=== PATIENT | female | born 1960 | race Hispanic/Latino ===

== ENCOUNTER 2024-10-28 08:08 | Inpatient (IN) | payer OTHER ==
[~2024-10-28] VITALS: Ht 144.8 cm; Wt 53.1 kg
[2024-10-28] MEDS: ondanSETRON 4MG INJ IVP ONE (08:29)
[2024-10-28] MEDS: LACTATED RINGERS 1000ML 1,000 ML IV ONE (08:29)
[2024-10-28 08:32] LABS: ABG OXYGEN SATURATION 76.7 % (94.0-98.0); BASE EXCESS,VENOUS BLOOD GAS -25.5 (-2.0-3.0); HCO3,VENOUS BLOOD GAS 4.6 (22.0-29.0); PCO2,VENOUS BLOOD GAS 20 (38-54); PH,VENOUS BLOOD GAS 6.986 (7.320-7.430); PO2,VENOUS BLOOD GAS 47.9 mmHg (23.0-48.0); VENT MODE, BG RA (ROOM AIR)
--- NOTE | 2024-10-28 08:37 | ERN ---
General Chief Complaint: Hyperglycemia Stated Complaint: HYPERGLYCERMIA Time Seen by MD: 08:16 History of Present Illness Initial Comments 63-year-old female, history of insulin-dependent diabetes, who presents for vomiting, generalized abdominal cramping, rapid respirations, and generalized weakness. Patient reports that she was taking 50 units of Lantus previously, recently her insulin has changed. Yesterday she took 4 units of Lantus in the morning and 3 units of Novolin twice. She woke up this morning feeling unwell. She denies any fevers, sore throat, chest pain, or any recent illness. According to family, she often does not take her insulin at home when she was feeling well. Allergies: Coded Allergies: acetaminophen (Unverified Allergy, Unknown, HIVES, 10/28/24) Past Medical History Past Medical History: Diabetes-Type II Past Surgical History: Other ROS Dictation CONSTITUTIONAL: Feeling unwell HEAD/FACE: No signs of trauma. EENT: No eye pain, no blurred vision, no tearing, no double vision, no ear pain, no ear discharge, no nose pain, no nasal congestion, no throat pain, no throat swelling, no mouth pain. RESPIRATORY: Tachypnea CARDIOVASCULAR: No chest pain, no edema, no palpitations, no syncope. GASTROINTESTINAL/ABDOMINAL: Vomiting. GENITOURINARY: No abnormal discharge, no dysuria, no frequent urination, no hematuria. No complaints of pain in the genitals. MUSCULOSKELETAL: No back pain, no gout, no joint pain, no joint swelling, no muscle pain, no muscle stiffness, no neck pain. INTEGUMENTARY: No change in color, no change in hair/nails, no dryness, no lesion, no lumps, no rash. NEUROLOGICAL/PSYCH: No anxiety, not depressed, no emotional problem, no headache, no numbness, no pre-existing deficit, no history of seizures, no tremors, no weakness. HEMATOLOGIC/LYMPHATIC: Not anemic, no history of blood clots, no apparent bleeding, no bruising, glands not swollen. All Systems Negative, Except as Noted. Physical Exam Physical Exam Dictation VITAL SIGNS: Reviewed. GENERAL APPEARANCE: Alert, oriented x3, moderate distress HEAD AND FACE: Non-traumatic. EYES: PERRL, pink conjunctivas, eyelid no trauma, anterior chamber clear. EARS: Pinnas intact and no signs of trauma or erythema. Ear canals clear and no discharge. TMs no erythema. NOSE: No discharge, no bleeding. OROPHARYNX: Mouth normal, teeth no caries, tongue pink. Pharynx clear, no erythema. Tonsils no exudates, no abscesses noted. Mucous membrane moist. NECK: Supple, non-tender, no thyromegaly, no masses, no JVD, no bruits. BREAST: Deferred. CHEST: No tenderness, no crepitus, no paradoxical movement, no retractions. LUNGS: Tachypnea with clear lung sounds HEART: Regular rate, regular rhythm, no murmur, no gallops. VASCULAR: No peripheral edema. ABDOMEN: Soft, positive bowel sounds, nondistended, no guarding, nontender, no rebound, no masses no hepatomegaly, no splenomegaly, no Castano's sign, no hernias. RECTAL: Deferred. GENITAL: Deferred. NEUROLOGICAL: Normal speech, gross motor function intact, gross sensory func tion intact. MUSCULOSKELETAL: Neck nontender, full range of motion, back nontender, full range of motion. EXTREMITIES: Nontender, full range of motion. SKIN: Color pink, dry, no turgor, no rash, no lacerations, no abrasions, no contusions. LYMPHATICS: Deferred. Results Laboratory and Microbiology Lab and Micro Result Laboratory Tests Test 10/28/24 08:13 10/28/24 08:31 10/28/24 08:32 Whole Blood Glucose > 600 MG/DL (70-110) *H Bedside Glucose Comment Notified Nurse Blood Gas Specimen Type Venous Arterial Blood Oxygen Saturation 76.7 % (94.0-98.0) L Venous Blood pH 6.986 (7.320-7.430) Venous Blood pCO2 at Patient Temp 20 (38-54) *L Venous Blood pO2 at Patient Temp 47.9 mmHg (23.0-48.0) Venous Blood HCO3 4.6 (22.0-29.0) L Venous Blood Base Excess -25.5 (-2.0-3.0) L Venous Blood Total Hemoglobin 15.5 (12.0-16.0) Sodium (Blood Gas) 131 MMOL/L (136-145) L Bedside Potassium (Blood Gas) 4.4 MMOL/L (3.4-4.5) Bedside Chloride (Blood Gas) 96 MMOL/L (98-107) L Bedside Glucose (Blood Gas) 617 MG/DL (65-95) *H Bedside Ionized Calcium (Blood Gas) 1.25 MMOL/L (1.15-1.33) Bedside Lactic Acid (Blood Gas) 5.15 MMOL/L (0.36-0.75) *H Blood Gas Temperature 37.0 CELSIUS (35.5-37.0) Blood Gas Vent Mode RA (ROOM AIR) FiO2 21.0 % Blood Gas Specimen Comment JAIME DR. BARBER White Blood Count 16.6 K/uL (4.8-10.8) H Red Blood Count 4.98 MIL/uL (4.00-5.50) Hemoglobin 14.5 g/dL (12.0-16.0) Hematocrit 45.6 % (36-48) Mean Corpuscular Volume 91.6 fL (79-99) Mean Corpuscular Hemoglobin 29.1 pg (27.0-33.0) Mean Corpuscular Hemoglobin Concent 31.8 g/dL (32.0-36.0) L Red Cell Distribution Width 13.4 % (11.0-15.5) Platelet Count 334 K/uL (130-400) Mean Platelet Volume 11.3 fL (7.5-10.5) H Immature Granulocyte % (Auto) 0.7 % (0-1) Neutrophils (%) (Auto) 90.6 % (40.0-77.0) H Lymphocytes (%) (Auto) 4.6 % (21.0-51.0) L Monocytes (%) (Auto) 4.0 % (3.0-13.0) Eosinophils (%) (Auto) 0.0 % (0.0-8.0) Basophils (%) (Auto) 0.1 % (0.0-5.0) Neutrophils # (Auto) 15.0 K/uL (1.8-7.7) H Lymphocytes # (Auto) 0.8 K/uL (1.0-4.8) L Monocytes # (Auto) 0.7 K/uL (0.1-1.0) Eosinophils # (Auto) 0.00 K/uL (0.00-0.70) Basophils # (Auto) 0.02 K/uL (0.00-0.20) Absolute Immature Granulocyte (auto 0.12 K/uL (0-1) Nucleated Red Blood Cells 0.0 % (0.0-0.19) White Cell Morphology Comment See comments Sodium Level 132 mmol/L (136-145) L Potassium Level 4.2 mmol/L (3.5-5.1) Chloride Level 89 mmol/L (101-111) *L Carbon Dioxide Level 5 mmol/L (21-32) *L Blood Urea Nitrogen 48 mg/dL (7-18) H Creatinine 2.1 mg/dL (0.5-1.0) H Glomerular Filtration Rate Calc 26 mL/min (>90) Random Glucose 633 mg/dL (70-105) *H Whole Blood Ketones Quantitative > 8.0 mmol/L (0.0-0.6) H Total Calcium 9.2 mg/dL (8.5-10.1) Troponin I High Sensitivity 7 ng/L (4-50) Lipase 62 U/L (16-77) MDM CC: GBW, nausea vomiting, rapid respiration historian: Patient Comorbidities: DM to Limitations by social determinants of health: None Differential diagnosis: DKA, dehydration, GI pathology, vomiting, other. Vital signs: BP stable, tachycardic 114, respiratory rate is 26, oxygen saturation stable. EKG: Sinus tachycardia rate of 109 normal axis good R-wave progression, intervals are stable no STEMI. Independently interpreted by me. VBG (independently ordered and interpreted by me): PH 6.98, bicarb 4.6 base excess -25. Hemo concentration hemoglobin 15.5 hematocrit 46. Potassium 4.39. Lactic 5.1, glucose 617. Treatment in ED: Started on DKA protocol. Fluids given. The potassium is stable 4.3. Insulin drip started. Consultations: [facility] for ICU care, Dr. Ozuna for admission (Dr. Chaves) ED Course Orders Procedure Category Date Status Time Cbc With Differential LAB 10/28/24 Complete 08:17 Urinalysis Profile LAB 10/28/24 Complete 08:17 Lactated Ringers PHA 10/28/24 Complete 1000ml (Lactated 08:30 Lipase LAB 10/28/24 Complete 08:17 Basic Metabolic Panel LAB 10/28/24 Complete 08:17 Venous Blood Gas + RT 10/28/24 Transmitted 08:17 Ketone Blood LAB 10/28/24 Complete Quantitative 08:17 Troponin I High LAB 10/28/24 Complete Sensitivity 08:17 Ondansetron 4mg Inj PHA 10/28/24 Complete (Zofran 4mg Inj) 08:30 12 Lead Ekg Tracing- EKG 10/28/24 Complete Technical 08:17 Venous Blood Gas Plus LAB 10/28/24 Complete 08:31 Dka Prtcl:Restrict To CPOE 10/28/24 Transmitted Icu/Ccu 08:33 Dka Protcl:Dc All CPOE 10/28/24 Transmitted Meds/Feeding 08:33 Dka Protocol: Bmp Q4h CPOE 10/28/24 Transmitted Until 08:33 Basic Metabolic Panel LAB 10/28/24 Complete 12:33 Basic Metabolic Panel LAB 10/28/24 Complete 16:33 Basic Metabolic Panel LAB 10/28/24 Logged 20:33 Basic Metabolic Panel LAB 10/29/24 Verified 00:33 Basic Metabolic Panel LAB 10/29/24 Verified 04:33 Basic Metabolic Panel LAB 10/29/24 Verified 08:33 Basic Metabolic Panel LAB 10/29/24 Verified 12:33 Basic Metabolic Panel LAB 10/29/24 Verified 16:33 Basic Metabolic Panel LAB 10/29/24 Verified 20:33 Basic Metabolic Panel LAB 10/30/24 Verified 00:33 Basic Metabolic Panel LAB 10/30/24 Verified 04:33 Basic Metabolic Panel LAB 10/30/24 Verified 08:33 Basic Metabolic Panel LAB 10/30/24 Verified 12:33 Basic Metabolic Panel LAB 10/30/24 Verified 16:33 Basic Metabolic Panel LAB 10/30/24 Verified 20:33 0.9%Nacl 1000ml (Ns PHA 10/28/24 In Process 1000ml) 09:00 D5w-1/2 Ns/20meq Kcl PHA 10/28/24 In Process (D5w-1/2 Ns/20meq K 09:00 Potassium Chloride PHA 10/28/24 In Process 20meq/10ml (Kcl 20meq 09:00 Magnesium 2gm Premix PHA 10/28/24 In Process 50ml (Magnesium 2gm 09:00 Insulin Regular, PHA 10/28/24 Logged Human 3ml (Humulin R 09:00 Dka Protocol: Bs, Vs, CPOE 10/28/24 Transmitted Neuro 08:33 Dextrose 5 %-0.45 % PHA 10/28/24 In Process Nacl (D5 1/2ns) 09:00 Current Medications Medications (Trade) Dose Ordered Sig/Terence Route PRN Reason Start Time Stop Time Status Last Admin Dose Admin Lactated Ringer's 1,000 ml @ 0 mls/hr ONCE ONCE IV 10/28/24 08:30 10/28/24 08:32 DC 10/28/24 08:29 Ondansetron HCl (zoFRAN 4MG INJ) 4 mg ONCE ONCE IVP 10/28/24 08:30 10/28/24 08:32 DC 10/28/24 08:29 Vital Signs Date Time Temp Pulse Resp B/P (MAP) Pulse Ox O2 Delivery O2 Flow Rate FiO2 10/28/24 08:34 97.0 107 26 117/72 98 Room Air* 0 21 10/28/24 08:13 96.4 114 20 112/64 99 Room Air DX & DISP Disposition: Inpatient (ICU) Departure Impression: Primary Impression: DKA (diabetic ketoacidosis) Critical Time: 30 minutes (Critical Care Procedure NoteAuthorized and Performed by: meTotal critical care time: Approximately 36 minutesDue to a high probability of clinically significant, life threatening deterioration, the patient required my highest level of preparedness to intervene emergently and I personally spent this critical care time directly and personally managing the patient. This critical care time included obtaining a history; examining the patient; pulse oximetry; ordering and review of studies; arranging urgent treatment with development of a management plan; evaluation of patient's response to treatment; frequent reassessment; and, discussions with other providers.This critical care time was performed to assess and manage the high probability of imminent, life-threatening deterioration that could result in multi-organ failure. It was exclusive of separately billable procedures and treating other patients and teaching time.Please see MDM section and the rest of the note for further information on patient assessment and treatment.) Condition: Stable Referrals: SELF,REFERRAL (PCP) NISHA BARBER DO Oct 28, 2024 08:37
[2024-10-28 08:55] LABS: BASOPHILS # (AUTO) 0.02 K/uL (0.00-0.20); BASOPHILS % (AUTO) 0.1 % (0.0-5.0); HEMATOCRIT 45.6 % (36-48); IMMATURE GRANULOCYTE ABSOLUTE 0.12 K/uL (0-1); LYMPHOCYTES # (AUTO) 0.8 K/uL (1.0-4.8); LYMPHOCYTES % (AUTO) 4.6 % (21.0-51.0); MEAN CORPUSCULAR HEMOGLOBIN 29.1 pg (27.0-33.0); MEAN CORPUSCULAR HGB CONC 31.8 g/dL (32.0-36.0); MEAN CORPUSCULAR VOLUME 91.6 fL (79-99); MONOCYTES # (AUTO) 0.7 K/uL (0.1-1.0); NEUTROPHILS % (AUTO) 90.6 % (40.0-77.0); PLATELET COUNT (AUTO) 334 K/uL (130-400); RED BLOOD CELL COUNT(AUTO) 4.98 MIL/uL (4.00-5.50); RED CELL DISTRIBUTION WIDTH 13.4 % (11.0-15.5); WHITE BLOOD COUNT (AUTO) 16.6 K/uL (4.8-10.8)
--- NOTE | 2024-10-28 08:55 | EKG ---
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
[2024-10-28] MEDS ORDERED: MAGNESIUM 2GM PREMIX 50ML 50 ML IV SCH ×2 (09:00→23:00)
[2024-10-28] MEDS ORDERED: DEXTROSE 5 %-0.45 % NACL 1,000 ML IV SCH (09:00)
[2024-10-28] MEDS ORDERED: 0.9%NACL 1000ML 1,000 ML IV SCH (09:00)
[2024-10-28] MEDS ORDERED: PoTASSium chloRIDE 20MEQ/10ML 20 MEQ in 0.9%NACL 1000ML 1,000 ML IV SCH (09:00)
[2024-10-28 09:09] LABS: CREATININE 2.1 mg/dL (0.5-1.0); GLOMERULAR FILTR. RATE CALC 26 mL/min (>90); POTASSIUM 4.2 mmol/L (3.5-5.1); SODIUM SERUM 132 mmol/L (136-145); UREA NITROGEN, BLOOD 48 mg/dL (7-18)
[2024-10-28 09:12] LABS: CARBON DIOXIDE 5 mmol/L (21-32); CHLORIDE 89 mmol/L (101-111); GLUCOSE,RANDOM 633 mg/dL (70-105)
[2024-10-28] MEDS: INSULIN REGULAR, HUMAN 3ML 100 UNIT in 0.9%NACL 100ML 100 ML IV SCH (09:58)
[2024-10-28 11:44] LABS: APPEARANCE,URINE CLEAR (CLEAR); BILIRUBIN,URINE NEGATIVE (NEGATIVE); COLOR,URINE COLORLESS (YELLOW); GLUCOSE, URINE (UA) >=1000 mg/dL (NEGATIVE); KETONES,URINE 150 mg/dL (NEGATIVE); LEUKOCYTE ESTERASE ,URINE NEGATIVE Leu/uL (NEGATIVE); NITRATE,URINE NEGATIVE (NEGATIVE); OCCULT BLOOD,URINE NEGATIVE (NEGATIVE); PROTEIN,URINE 10 mg/dL (NEGATIVE); UROBILINOGEN,URINE 0.2 mg/dL (0.2-1.0)
[2024-10-28 12:31] LABS: ADD UA MICROSCOPIC YES
--- NOTE | 2024-10-28 13:01 | CONS ---
[facility] CONSULTATION NOTE Date Patient Seen: Oct 28, 2024 Time of Visit: 13:01 Supervising Physician: Homer Trejo MD Reason for Consultation: Critical Care Management Primary Care Physician: Oj Chaves Outpatient Specialists: [ ] Inpatient Consults: Dr Maya LUCAS PROBLEM LIST: Multifactorial metabolic acidosis (DKA, lactic acidosis, ADA) DKA ADA Leukocytosis Uncontrolled blood sugars and type 2 diabetes mellitus, POA Dehydration Ketonuria Protein urea Glucosuria HPI: This is a 63-year-old female with a past medical history of insulin-dependent type 2 diabetes mellitus who came into the emergency department for evaluation of elevated blood sugars. Patient reports a recent insulin change but does not recall exactly the name of the medication. Patient reports that since rub change in medication she has been able to control her blood sugars. She also reported some abdominal pain nausea and generalized body weakness. She denies any fever, chills, cough or shortness of breath at this time. She was seen in the emergency department evaluated and found to have DKA with a anion gap of 38. With a sodium of 132 chloride of 89 carbon dioxide in the serum of five BUN of 48 creatinine of 2.1 initial glucose was greater than 600 mg/dL ketones was greater than eight. Lipase was normal sensitive troponin was normal total calcium was 9.2. Venous blood gas with a pH of 6.98, pCO2 of 20 PO2 of 47.9 and bicarb of 4.6 with a base excess -25.5 lactic acid was 5.15. On chemistry white count was 16.6 platelet count 234 K neutrophils 90.6 Urine drug screen was negative. On urinalysis patient has a protein of 10 glucose of greater than 1000 ketones 750 RBCs 2-5 WBCs at 02:25 2- for leukocyte esterase. Renal ultrasound showed normal renal bladder sonogram. Patient was admitted by to the ICU and we are consulted for critical care management. On assessment patient is awake alert and oriented x3. Hemodynamically stable and afebrile. Saturating well and ambulatory. Inform her of plan of care and answered all her questions. She is in no apparent distress we will start the DKA protocol and follow her through the ICU stay. PAST MEDICAL HX: see above PAST SURGICAL HX: noncontributory SOCIAL HISTORY: No tobacco, ETOH, or illicit drug use Coded Allergies: acetaminophen (Unverified Allergy, Unknown, HIVES, 10/28/24) REVIEW OF SYSTEMS: General: Generalized body weakness. Neurological: No fainting episodes or seizures. HEENT: No nasal congestion or nasal secretion. Respiratory: No cough, shortness of breath, or wheezing Cardiac: No chest pain or palpitations. Gastrointestinal: Yes to nausea vomiting and abdominal pain resolving. Genitourinary: No dysuria hematuria. Skin: No rashes or lesions. Hematological: No bruises or bleeding. Musculoskeletal: No joint pains or arthralgias. Psychiatric: No depression or panic attacks. PHYSICAL EXAM: GENERAL: alert, weak, awake oriented x 3 HEENT: EOMI, Sclera non icteric, moist mucosa NECK: Supple, no JVD, trachea midline LUNGS: Clear breath sounds bilaterally. No wheezes HEART: Regular rate and rhythm. Normal S1 and S2, without murmurs ABD: Abdomen soft, nontender. Bowel sounds present EXT: No clubbing cyanosis or edema NEURO: Alert and oriented to person, follows commands Vital Signs (last 8hr) Date Time Temp Pulse Resp B/P (MAP) Pulse Ox O2 Delivery O2 Flow Rate FiO2 10/28/24 08:34 97.0 107 26 117/72 98 Room Air* 0 21 10/28/24 08:13 96.4 114 20 112/64 99 Room Air LABS: Hematology Labs: Test 10/28/24 08:32 Range/Units White Blood Count 16.6 H 4.8-10.8 K/uL Red Blood Count 4.98 4.00-5.50 MIL/uL Hemoglobin 14.5 12.0-16.0 g/dL Hematocrit 45.6 36-48 % Mean Corpuscular Volume 91.6 79-99 fL Mean Corpuscular Hemoglobin 29.1 27.0-33.0 pg Mean Corpuscular Hemoglobin Concent 31.8 L 32.0-36.0 g/dL Red Cell Distribution Width 13.4 11.0-15.5 % Platelet Count 334 130-400 K/uL Mean Platelet Volume 11.3 H 7.5-10.5 fL Immature Granulocyte % (Auto) 0.7 0-1 % Neutrophils (%) (Auto) 90.6 H 40.0-77.0 % Lymphocytes (%) (Auto) 4.6 L 21.0-51.0 % Monocytes (%) (Auto) 4.0 3.0-13.0 % Eosinophils (%) (Auto) 0.0 0.0-8.0 % Basophils (%) (Auto) 0.1 0.0-5.0 % Neutrophils # (Auto) 15.0 H 1.8-7.7 K/uL Lymphocytes # (Auto) 0.8 L 1.0-4.8 K/uL Monocytes # (Auto) 0.7 0.1-1.0 K/uL Eosinophils # (Auto) 0.00 0.00-0.70 K/uL Basophils # (Auto) 0.02 0.00-0.20 K/uL Absolute Immature Granulocyte (auto 0.12 0-1 K/uL Nucleated Red Blood Cells 0.0 0.0-0.19 % White Cell Morphology Comment See comments Chemistry Labs: Test 10/28/24 12:20 10/28/24 10:59 10/28/24 08:32 Range/Units Whole Blood Glucose 391 H 70-110 MG/DL Bedside Glucose Comment Notified Nurse Sodium Level 132 L 136-145 mmol/L Potassium Level 4.2 3.5-5.1 mmol/L Chloride Level 89 *L 101-111 mmol/L Carbon Dioxide Level 5 *L 21-32 mmol/L Blood Urea Nitrogen 48 H 7-18 mg/dL Creatinine 2.1 H 0.5-1.0 mg/dL Glomerular Filtration Rate Calc 26 >90 mL/min Random Glucose 633 *H 70-105 mg/dL Whole Blood Ketones Quantitative > 8.0 H 0.0-0.6 mmol/L Total Calcium 9.2 8.5-10.1 mg/dL Troponin I High Sensitivity 7 4-50 ng/L Lipase 62 16-77 U/L DIAGNOSTICS / RADIOLOGY RESULTS: [ ] Signed PATIENT: RAVEN BRAR MR#: [id number] : 1960 SEX: F AGE: 63 LOCATION: [facility] ORDER [id number] STATUS: ADM IN REPORT#: [id number] SERVICE [id number] REASON: ada ORDERING PHYSICIAN: ROXANNA MUNIZ PROCEDURE: RENAL - US RENAL SONOGRAM US RENAL SONOGRAM REASON: ada COMPARISON: None TECHNIQUE: Renal and bladder sonogram was performed. FINDINGS: Right kidney is 10 x 3.8 x 4.4 cm, left 9.3 x 5.1 x 5.8 cm. There is no mass or stone. There is no hydronephrosis. Urinary bladder appears unremarkable. IMPRESSION: 1. Normal renal and bladder sonogram. DICTATED BY: VAUGHN ONTIVEROS MD DATE: 10/28/241419 ELECTRONICALLY SIGNED BY: VAUGHN ONTIVEROS MD DATE: 10/28/241422 PLAN Admitted to ICU per Dr Ozuna Four amps of sodium bicarb due to pH of 6.9 DKA protocol BMP q.4 hours per protocol Magnesium, potassium levels covered per protocol Q.1 hour or fingersticks Venous blood gas in the morning Monitor serum sodium which tend to rise as hypoglycemia is corrected failure to observe may indicate the patient has been over-hydrated with free water Strict I&O Assess mental status Administered subcu basal insulin consider bicarb if patient's pH is less than 6.9 bicarb less than 5., cardiac or respiratory dysfunction, severely hyperkalemia, Rechecked ketones in the morning. Empiric broad-spectrum antibiotic Monitor for rebound DKA Give LR 30 mL/kilogram bolus x1 NEURO: Minimize central acting medications as possible. Fall Precautions. Well lighted room through the day and minimize interruptions through the night to prevent acute delirium. PULMONARY: Supplemental 02 as needed Titrate Fio2 to keep Spo2 > or = 90% DuoNebs and CPT as needed IS hourly while awake for pulmonary hygiene Out of bed to chair as tolerated VAP Bundle CARDIOVASCULAR: Follow hemodynamics. Titrate vasopressor to keep MAP >65 or systolic blood pressure >95mmHg Drips: DKA insulin drip per protocol LINES: PIV GI & NUTRITION: Continue nutritional support Aspirations precautions Prokinetic agents and laxatives as needed NPO KIDNEYS & ELECTROLYTES: Strict monitoring of intake and output Daily weights Avoid nephrotoxic agents Monitor electrolytes and replace as needed Goal urine output of 30mL/hr or 0.5mL/kg/hr ENDOCRINE: Maintain blood glucose between 100-180 at all times. Insulin sliding scale for blood glucose management INFECTIOUS DISEASE: Trend temperature. Day-culture if febrile. Micro: [ ] Blood culture Urine culture Antibiotics: Rocephin 2 g Q 24 hours hours IV HEMATOLOGY & COAGULATION: Monitor H&H. Keep Hgb > 7 Transfuse 1 unit of PRBC for Hgb < 7 Transfuse 1 pack of platelets of platelets < 20, 000 Watch for any signs and symptoms of bleeding SKIN: Pressure ulcer prevention per facility protocol Rehab: PT/OT Prophylaxis: GI: Pepcid DVT: Lovenox Code Status: Full Resuscitation Disposition: ICU Other: Total patient care time exceeds 35 minutes excluding all procedures. Case was discussed and seen with my supervising physician. The above plan was formulated and agreed upon. ROXANNA MUNIZ Oct 28, 2024 13:01
[2024-10-28 13:13] LABS: CREATININE 1.7 mg/dL (0.5-1.0); POTASSIUM 3.8 mmol/L (3.5-5.1)
[2024-10-28 13:39] LABS: BACTERIA,URINE Few /HPF (None Seen)
[2024-10-28] MEDS: CEFTRIAXONE 2GM VIAL IVPB SCH (13:50)
[2024-10-28] MEDS: LACTATED RINGERS IV ONE (13:53)
[2024-10-28] MEDS: SODIUM BICARB 50MEQ 50ML VIAL IV ONE (13:53)
--- NOTE | 2024-10-28 14:22 | HP ---
HISTORY AND PHYSICAL NOTE DATE OF CONSULTATION: 10/28/24 REASON FOR CONSULTATION: Weakness HISTORY OF PRESENT ILLNESS: 63-year-old female, history of insulin-dependent diabetes, who presents for vomiting, generalized abdominal cramping, rapid respirations, and generalized weakness. Patient reports that she was taking 50 units of Lantus previously, recently her insulin has changed. Yesterday she took 4 units of Lantus in the morning and 3 units of Novolin twice. She woke up this morning feeling unwell. She denies any fevers, sore throat, chest pain, or any recent illness. According to family, she often does not take her insulin at home when she was feeling well. Allergies: Coded Allergies: acetaminophen (Unverified Allergy, Unknown, HIVES, 10/28/24) Past History Past Medical History Past Medical History: Diabetes-Type II Past Surgical History: Other Review of Systems ROS Dictation CONSTITUTIONAL: Feeling unwell HEAD/FACE: No signs of trauma. EENT: No eye pain, no blurred vision, no tearing, no double vision, no ear pain, no ear discharge, no nose pain, no nasal congestion, no throat pain, no throat swelling, no mouth pain. RESPIRATORY: Tachypnea CARDIOVASCULAR: No chest pain, no edema, no palpitations, no syncope. GASTROINTESTINAL/ABDOMINAL: Vomiting. GENITOURINARY: No abnormal discharge, no dysuria, no frequent urination, no hematuria. No complaints of pain in the genitals. MUSCULOSKELETAL: No back pain, no gout, no joint pain, no joint swelling, no muscle pain, no muscle stiffness, no neck pain. INTEGUMENTARY: No change in color, no change in hair/nails, no dryness, no lesion, no lumps, no rash. NEUROLOGICAL/PSYCH: No anxiety, not depressed, no emotional problem, no headache, no numbness, no pre-existing deficit, no history of seizures, no tremors, no weakness. HEMATOLOGIC/LYMPHATIC: Not anemic, no history of blood clots, no apparent bleeding, no bruising, glands not swollen. All Systems Negative, Except as Noted. ALLERGIES: Coded Allergies: acetaminophen (Unverified Allergy, Unknown, HIVES, 10/28/24) INPATIENT MEDS: Current Medications Medications Dose Ordered Sig/Terence Start Time Stop Time Status Last Admin Sodium Chloride 1,000 ml @ 200 mls/hr PROTOCOL 10/28/24 09:00 11/27/24 08:59 Potassium Chloride/Dextrose/ Sod Cl 1,000 ml @ 0 mls/hr AD 10/28/24 09:00 11/27/24 08:59 Potassium Chloride 20 meq/ Sodium Chloride 1,010 ml @ 0 mls/hr PROTOCOL 10/28/24 09:00 11/27/24 08:59 Magnesium Sulfate 50 ml @ 0 mls/hr PROTOCOL 10/28/24 09:00 11/27/24 08:59 Insulin Human Regular 100 unit/ Sodium Chloride 101 ml @ 0 mls/hr PROTOCOL 10/28/24 09:00 11/27/24 08:59 10/28/24 09:58 Dextrose/Sodium Chloride 1,000 ml @ 0 mls/hr AD 10/28/24 09:00 11/27/24 08:59 Insulin Glargine 10 units BID@0730,2100 10/28/24 21:00 11/27/24 20:59 Lactated Ringer's 1,593 ml @ 531 mls/hr ONCE ONCE 10/28/24 13:00 10/28/24 15:59 10/28/24 13:53 Ceftriaxone Sodium 2 gm Q24H 10/28/24 13:00 11/07/24 12:59 10/28/24 13:50 VITAL SIGNS Vital Signs Date Time Temp Pulse Resp B/P (MAP) Pulse Ox O2 Delivery O2 Flow Rate FiO2 10/28/24 13:06 98.2 94 16 114/64 98 Room Air* 0 21 10/28/24 08:34 97.0 107 26 117/72 98 Room Air* 0 10/28/24 08:13 96.4 114 20 112/64 99 Room Air PHYSICAL EXAM Physical Exam Physical Exam Physical Exam Dictation VITAL SIGNS: Reviewed. GENERAL APPEARANCE: Alert, oriented x3, moderate distress HEAD AND FACE: Non-traumatic. EYES: PERRL, pink conjunctivas, eyelid no trauma, anterior chamber clear. EARS: Pinnas intact and no signs of trauma or erythema. Ear canals clear and no discharge. TMs no erythema. NOSE: No discharge, no bleeding. OROPHARYNX: Mouth normal, teeth no caries, tongue pink. Pharynx clear, no erythema. Tonsils no exudates, no abscesses noted. Mucous membrane moist. NECK: Supple, non-tender, no thyromegaly, no masses, no JVD, no bruits. BREAST: Deferred. CHEST: No tenderness, no crepitus, no paradoxical movement, no retractions. LUNGS: Tachypnea with clear lung sounds HEART: Regular rate, regular rhythm, no murmur, no gallops. VASCULAR: No peripheral edema. ABDOMEN: Soft, positive bowel sounds, nondistended, no guarding, nontender, no rebound, no masses no hepatomegaly, no splenomegaly, no Castano's sign, no hernias. RECTAL: Deferred. GENITAL: Deferred. NEUROLOGICAL: Normal speech, gross motor function intact, gross sensory function intact. MUSCULOSKELETAL: Neck nontender, full range of motion, back nontender, full range of motion. EXTREMITIES: Nontender, full range of motion. SKIN: Color pink, dry, no turgor, no rash, no lacerations, no abrasions, no contusions. LYMPHATICS: Deferred. LABORATORY RESULTS Laboratory Tests 10/28/24 08:13: Whole Blood Glucose > 600, Bedside Glucose Comment Notified Nurse 10/28/24 08:31: Blood Gas Specimen Type Venous, Arterial Blood Oxygen Saturation 76.7, Venous Blood pH 6.986, Venous Blood pCO2 at Patient Temp 20, Venous Blood pO2 at Patient Temp 47.9, Venous Blood HCO3 4.6, Venous Blood Base Excess -25.5, Venous Blood Total Hemoglobin 15.5, Sodium (Blood Gas) 131, Bedside Potassium (Blood Gas) 4.4, Bedside Chloride (Blood Gas) 96, Bedside Glucose (Blood Gas) 617, Bedside Ionized Calcium (Blood Gas) 1.25, Bedside Lactic Acid (Blood Gas) 5.15, Blood Gas Temperature 37.0, Blood Gas Vent Mode RA, FiO2 21.0, Blood Gas Specimen Comment JAIME DR. BARBER 10/28/24 08:32: White Blood Count 16.6, Red Blood Count 4.98, Hemoglobin 14.5, Hematocrit 45.6, Mean Corpuscular Volume 91.6, Mean Corpuscular Hemoglobin 29.1, Mean Corpuscular Hemoglobin Concent 31.8, Red Cell Distribution Width 13.4, Platelet Count 334, Mean Platelet Volume 11.3, Immature Granulocyte % (Auto) 0.7, Neutrophils (%) (Auto) 90.6, Lymphocytes (%) (Auto) 4.6, Monocytes (%) (Auto) 4.0, Eosinophils (%) (Auto) 0.0, Basophils (%) (Auto) 0.1, Neutrophils # (Auto) 15.0, Lymphocytes # (Auto) 0.8, Monocytes # (Auto) 0.7, Eosinophils # (Auto) 0.00, Basophils # (Auto) 0.02, Absolute Immature Granulocyte (auto 0.12, Nucleated Red Blood Cells 0.0, White Cell Morphology Comment See comments, Sodium Level 132, Potassium Level 4.2, Chloride Level 89, Carbon Dioxide Level 5, Blood Urea Nitrogen 48, Creatinine 2.1, Glomerular Filtration Rate Calc 26, Random Glucose 633, Whole Blood Ketones Quantitative > 8.0, Total Calcium 9.2, Troponin I High Sensitivity 7, Lipase 62 10/28/24 10:59: Whole Blood Glucose 504, Bedside Glucose Comment Notified Nurse 10/28/24 11:16: Urine Color COLORLESS, Urine Appearance CLEAR, Urine pH 5.0, Urine Specific [place] 1.021, Urine Protein 10, Urine Glucose (UA) >=1000, Urine Ketones 150, Urine Occult Blood NEGATIVE, Urine Nitrate NEGATIVE, Urine Bilirubin NEGATIVE, Urine Urobilinogen 0.2, Urine Leukocyte Esterase NEGATIVE, Urine RBC 2-5, Urine WBC 2-5, Urine Squamous Epithelial Cells 2-5, Urine Bacteria Few 10/28/24 12:20: Whole Blood Glucose 391 10/28/24 12:26: Sodium Level 136, Potassium Level 3.8, Chloride Level 95, Carbon Dioxide Level 8, Blood Urea Nitrogen 47, Creatinine 1.7, Glomerular Filtration Rate Calc 33, Random Glucose 419, Total Calcium 9.0 10/28/24 13:15: Whole Blood Glucose 311 PROBLEM LIST: (1) DKA (diabetic ketoacidosis) ICD Codes: E11.10 - Type 2 diabetes mellitus with ketoacidosis without coma PLAN Admit to ICU and follow up per critical Care CADEN WASHINGTON MD Oct 28, 2024 14:22
--- NOTE | 2024-10-28 14:23 | HMCIMG ---
US RENAL SONOGRAM REASON: rekha COMPARISON: None TECHNIQUE: Renal and bladder sonogram was performed. FINDINGS: Right kidney is 10 x 3.8 x 4.4 cm, left 9.3 x 5.1 x 5.8 cm. There is no mass or stone. There is no hydronephrosis. Urinary bladder appears unremarkable. IMPRESSION: 1. Normal renal and bladder sonogram.
[2024-10-28 15:47] LABS: AMPHET/METH SCREEN,URINE NEGATIVE (NEGATIVE); BARBITURATE SCREEN, URINE NEGATIVE (NEGATIVE); BENZODIAZEPINES SCREEN,URINE NEGATIVE (NEGATIVE); CANNABINOID SCREEN,URINE NEGATIVE (NEGATIVE); COCAINE SCREEN,URINE NEGATIVE (NEGATIVE); OPIATE SCREEN,URINE NEGATIVE (NEGATIVE); PHENCYCLIDINE SCREEN,URINE NEGATIVE (NEGATIVE)
--- NOTE | 2024-10-28 16:49 | NUR ---
INSULIN TITRATION PLEASE SEE CHART FOR CHANGES
[2024-10-28 18:09] LABS: CREATININE 1.3 mg/dL (0.5-1.0); POTASSIUM 3.3 mmol/L (3.5-5.1)
[2024-10-28 21:29] LABS: CREATININE 1.3 mg/dL (0.5-1.0); POTASSIUM 3.1 mmol/L (3.5-5.1)
[2024-10-28] MEDS: INSULIN GLARgine 100 UNITS/ML 10 ML VIAL SQ SCH (23:13)
[2024-10-28] MEDS: PoTASSium chloRIDE 10MEQ/100ML 100 ML IV ONE (23:36)
[2024-10-29 01:45] LABS: HEMATOCRIT 33.4 % (36-48); MEAN CORPUSCULAR HEMOGLOBIN 28.8 pg (27.0-33.0); MEAN CORPUSCULAR HGB CONC 34.4 g/dL (32.0-36.0); MEAN CORPUSCULAR VOLUME 83.5 fL (79-99); RED CELL DISTRIBUTION WIDTH 13.2 % (11.0-15.5); WHITE BLOOD COUNT (AUTO) 8.7 K/uL (4.8-10.8)
[2024-10-29 01:52] LABS: CREATININE 1.2 mg/dL (0.5-1.0); POTASSIUM 3.3 mmol/L (3.5-5.1)
[2024-10-29] MEDS: PoTASSium chloRIDE 20MEQ/100ML 100 ML IV ONE (02:05)
[2024-10-29] MEDS: D5W-1/2 NS/20MEQ KCL 1,000 ML IV SCH (02:08)
[2024-10-29 03:48] LABS: ABG OXYGEN SATURATION 81.5 % (94.0-98.0); BASE EXCESS,VENOUS BLOOD GAS -3.3 (-2.0-3.0); DEVICE COMMENT RN VENOUS; HCO3,VENOUS BLOOD GAS 20.2 (22.0-29.0); PCO2,VENOUS BLOOD GAS 33 (38-54); PH,VENOUS BLOOD GAS 7.412 (7.320-7.430); PO2,VENOUS BLOOD GAS 44.4 mmHg (23.0-48.0)
[2024-10-29 04:38] LABS: CREATININE 1.2 mg/dL (0.5-1.0); POTASSIUM 3.3 mmol/L (3.5-5.1)
[2024-10-29] MEDS ORDERED: PoTASSium chloRIDE 10MEQ/100ML 100 ML IV PRN (05:00)
[2024-10-29] MEDS: PoTASSium chloRIDE 20MEQ/100ML 100 ML IV PRN (05:04)
--- NOTE | 2024-10-29 08:41 | PN ---
[facility] INPATIENT SERVICES PROGRESS NOTE Date Patient Seen: Oct 29, 2024 Time of Visit: 08:41 Supervising Physician: Alex Mejia MD Primary Care Physician: Oj Chaves Outpatient Specialists: [ ] Inpatient Consults: Dr Maya LUCAS PROBLEM LIST: Multifactorial metabolic acidosis (DKA, lactic acidosis, ADA), resolved DKA , resolved ADA , resolving Leukocytosis, resolved Uncontrolled blood sugars and type 2 diabetes mellitus, POA Dehydration , resolved Ketonuria Protein urea Glucosuria INTERVAL HISTORY: Patient is awake alert and oriented x3 hemodynamically stable she has been afebrile urine she denies any chest pain, shortness of breath abdominal pain or nausea and vomiting. She reports feeling much better. Patient reports good urine output. WBCs have normalized H&H 11.5/33.4 likely from hydration. Chemistry sodium 138 potassium 3.3 covered per DKA protocol carbon dioxide 27 BUN of 29 creatinine of 1.2 and GFR 51 improving from admission which was 26. Renal ultrasound with normal renal and bladder sonogram. She is stable to downgrade to medical surgical floor. On behalf of [facility] thank you for given us the opportunity to participate in the care of this patient. From pulmonary standpoint patient is stable at this time. We will sign off. Please reach to us should the need arise. On behalf of [facility] we are thankful for your team to let us participate in the care of this patient. We will be available if assistance in pulmonary critical care needed. REVIEW OF SYSTEMS: General: No generalized body weakness, lethargic or chills. Neurological: No fainting episodes or seizures. HEENT: No nasal congestion or nasal secretion. Respiratory: No cough, shortness of breath, or wheezing Cardiac: No chest pain or palpitations. Gastrointestinal: No nausea, vomiting or diarrhea. Genitourinary: No dysuria hematuria. Skin: No rashes or lesions. Hematological: No bruises or bleeding. Musculoskeletal: No joint pains or arthralgias. Psychiatric: No depression or panic attacks. PHYSICAL EXAM: GENERAL: alert, weak, awake oriented x 3 HEENT: EOMI, Sclera non icteric, moist mucosa NECK: Supple, no JVD, trachea midline LUNGS: Clear breath sounds bilaterally. No wheezes HEART: Regular rate and rhythm. Normal S1 and S2, without murmurs ABD: Abdomen soft, nontender. Bowel sounds present EXT: No clubbing cyanosis or edema NEURO: Alert and oriented to person, follows commands Vital Signs (last 8hr) Date Time Temp Pulse Resp B/P (MAP) Pulse Ox O2 Delivery O2 Flow Rate FiO2 10/29/24 07:15 98.1 75 16 97/58 96 Room Air* 0 10/29/24 05:23 98.2 67 18 90/60 98 Room Air* 0 21 10/29/24 02:55 98.4 77 19 90/54 98 Room Air* 0 10/29/24 01:05 74 22 98/52 97 Room Air* 0 10/29/24 01:03 68 21 95/49 96 Room Air* 0 21 LABS: Hematology Labs: Test 10/29/24 01:35 10/28/24 08:32 Range/Units White Blood Count 8.7 # 4.8-10.8 K/uL Red Blood Count 4.00 4.00-5.50 MIL/uL Hemoglobin 11.5 #L 12.0-16.0 g/dL Hematocrit 33.4 #L 36-48 % Mean Corpuscular Volume 83.5 79-99 fL Mean Corpuscular Hemoglobin 28.8 27.0-33.0 pg Mean Corpuscular Hemoglobin Concent 34.4 32.0-36.0 g/dL Red Cell Distribution Width 13.2 11.0-15.5 % Platelet Count 206 # 130-400 K/uL Mean Platelet Volume 9.8 7.5-10.5 fL Nucleated Red Blood Cells 0.0 0.0-0.19 % Immature Granulocyte % (Auto) 0.7 0-1 % Neutrophils (%) (Auto) 90.6 H 40.0-77.0 % Lymphocytes (%) (Auto) 4.6 L 21.0-51.0 % Monocytes (%) (Auto) 4.0 3.0-13.0 % Eosinophils (%) (Auto) 0.0 0.0-8.0 % Basophils (%) (Auto) 0.1 0.0-5.0 % Neutrophils # (Auto) 15.0 H 1.8-7.7 K/uL Lymphocytes # (Auto) 0.8 L 1.0-4.8 K/uL Monocytes # (Auto) 0.7 0.1-1.0 K/uL Eosinophils # (Auto) 0.00 0.00-0.70 K/uL Basophils # (Auto) 0.02 0.00-0.20 K/uL Absolute Immature Granulocyte (auto 0.12 0-1 K/uL White Cell Morphology Comment See comments Chemistry Labs: Test 10/29/24 07:34 10/29/24 03:47 10/28/24 17:16 10/28/24 08:32 Range/Units Whole Blood Glucose 128 H 70-110 MG/DL Bedside Glucose Comment Notified Nurse Sodium Level 138 136-145 mmol/L Potassium Level 3.3 L 3.5-5.1 mmol/L Chloride Level 102 101-111 mmol/L Carbon Dioxide Level 27 21-32 mmol/L Blood Urea Nitrogen 29 H 7-18 mg/dL Creatinine 1.2 H 0.5-1.0 mg/dL Glomerular Filtration Rate Calc 51 >90 mL/min Random Glucose 145 H 70-105 mg/dL Total Calcium 7.6 L 8.5-10.1 mg/dL Lactic Acid Level 1.9 0.8-2.5 mmol/L Whole Blood Ketones Quantitative > 8.0 H 0.0-0.6 mmol/L Troponin I High Sensitivity 7 4-50 ng/L Lipase 62 16-77 U/L DIAGNOSTICS / RADIOLOGY RESULTS: [ ] IMAGING REPORT Signed PATIENT: RAVEN BRAR MR#: [id number] : 1960 SEX: F AGE: 63 LOCATION: [facility] ORDER 1301 STATUS: ADM IN REPORT#: [id number] SERVICE [id number] REASON: ada ORDERING PHYSICIAN: ROXANNA MUNIZ PROCEDURE: RENAL - US RENAL SONOGRAM US RENAL SONOGRAM REASON: ada COMPARISON: None TECHNIQUE: Renal and bladder sonogram was performed. FINDINGS: Right kidney is 10 x 3.8 x 4.4 cm, left 9.3 x 5.1 x 5.8 cm. There is no mass or stone. There is no hydronephrosis. Urinary bladder appears unremarkable. IMPRESSION: 1. Normal renal and bladder sonogram. DICTATED BY: VAUGHN ONTIVEROS MD DATE: 10/28/241419 ELECTRONICALLY SIGNED BY: VAUGHN ONTIVEROS MD DATE: 10/28/241422 PLAN Continue Lantus subQ start regular insulin subcu per sliding scale DC IV Insulin gtt DC DKA protocol Downgrade to medical surgical NEURO: Minimize central acting medications as possible. Fall Precautions. Well lighted room through the day and minimize interruptions through the night to prevent acute delirium. PULMONARY: Supplemental 02 as needed Titrate Fio2 to keep Spo2 > or = 90% DuoNebs and CPT as needed IS hourly while awake for pulmonary hygiene Out of bed to chair as tolerated VAP Bundle CARDIOVASCULAR: Follow hemodynamics. Titrate vasopressor to keep MAP >65 or systolic blood pressure >95mmHg Drips: DKA insulin drip per protocol LINES: PIV GI & NUTRITION: Continue nutritional support Aspirations precautions Prokinetic agents and laxatives as needed NPO KIDNEYS & ELECTROLYTES: Strict monitoring of intake and output Daily weights Avoid nephrotoxic agents Monitor electrolytes and replace as needed Goal urine output of 30mL/hr or 0.5mL/kg/hr ENDOCRINE: Maintain blood glucose between 100-180 at all times. Insulin sliding scale for blood glucose management INFECTIOUS DISEASE: Trend temperature. Day-culture if febrile. Micro: [ ] Blood culture Urine culture Antibiotics: Rocephin 2 g Q 24 hours hours IV HEMATOLOGY & COAGULATION: Monitor H&H. Keep Hgb > 7 Transfuse 1 unit of PRBC for Hgb < 7 Transfuse 1 pack of platelets of platelets < 20, 000 Watch for any signs and symptoms of bleeding SKIN: Pressure ulcer prevention per facility protocol Rehab: PT/OT Prophylaxis: GI: Pepcid DVT: Lovenox Code Status: Full Resuscitation Disposition: ICU Other: Total patient care time exceeds 35 minutes excluding all procedures. Case was discussed and seen with my supervising physician. The above plan was formulated and agreed upon. ROXANNA MUNIZ Oct 29, 2024 08:41
[2024-10-29] MEDS ORDERED: GLUCAGON 1MG KIT 1 MG ML IM PRN (09:00)
[2024-10-29] MEDS ORDERED: PoTASSium chl 10% ELIXIR 20MEQ 20 MEQ/15 ML UDCUP PO PRN (09:00)
[2024-10-29] MEDS ORDERED: MAGNESIUM 2GM PREMIX 50ML 50 ML IV PRN (09:00)
[2024-10-29] MEDS ORDERED: DEXTROSE 50%-WATER 50 ML DISP.SYRIN IV PRN (09:00)
[2024-10-29] MEDS: SUCRALFATE 1 GM TABLET PO SCH (10:10)
[2024-10-29] MEDS: INSULIN humuLIN R 100 UNIT/ML 3ML SQ SCH (11:30)
--- NOTE | 2024-10-29 16:24 | PN ---
SUBJECTIVE: The patient was examined at the bedside. She was admitted for assessment and treatment of DKA without a coma with hyperglycemia, ketoacidosis. The patient was started on IV antibiotics, IV insulin and IV hydration. PHYSICAL EXAMINATION: GENERAL: Currently, she is awake, alert, oriented in person, time, and place, not in distress. VITAL SIGNS: In the chart. HEENT: She is normocephalic, atraumatic. PERRLA. [place] and moist oral mucosa. Neck is supple, no jugular venous dilation, no carotid bruit, no goiter. LUNGS: Clear to auscultation. HEART: S1, S2 are distant. ABDOMEN: Soft, nontender. EXTREMITIES: No clubbing, cyanosis. LABORATORY DATA: WBC count 8.7, hemoglobin 11.5, platelets 206, glucose was 134. ASSESSMENT AND PLAN: 1. Diabetic ketoacidosis. The patient's IV insulin will be discontinued. Restart her on insulin Lantus 25 units as well as a sliding scale. 2. Leukocytosis, controlled. Continue with Rocephin. 3. Acute kidney injury. Continue to monitor. Continue hydration. 4. Follow up in a.m. with results of tests. I appreciated input of consultants. TID: [id number] RECEIPT: [id number]
[2024-10-29 16:27] VITALS: BP 104/62; PULSE 65; RESP 18; TEMP 98.2
[2024-10-29 19:00] VITALS: BP 133/82; PULSE 71; RESP 18; TEMP 98.3
[2024-10-30] VITALS: BP 119/84; PULSE 72; RESP 18; TEMP 98.2
[2024-10-30 04:00] VITALS: BP 107/64; PULSE 59; RESP 18; TEMP 97.7
[2024-10-30 04:54] LABS: BASOPHILS # (AUTO) 0.01 K/uL (0.00-0.20); BASOPHILS % (AUTO) 0.2 % (0.0-5.0); EOSINOPHILS # (AUTO) 0.01 K/uL (0.00-0.70); EOSINOPHILS % (AUTO) 0.2 % (0.0-8.0); HEMATOCRIT 31.9 % (36-48); IMMATURE GRANULOCYTE ABSOLUTE 0.01 K/uL (0-1); LYMPHOCYTES # (AUTO) 1.8 K/uL (1.0-4.8); LYMPHOCYTES % (AUTO) 38.8 % (21.0-51.0); MEAN CORPUSCULAR HEMOGLOBIN 28.9 pg (27.0-33.0); MEAN CORPUSCULAR HGB CONC 33.5 g/dL (32.0-36.0); MEAN CORPUSCULAR VOLUME 86.2 fL (79-99); MONOCYTES # (AUTO) 0.3 K/uL (0.1-1.0); MONOCYTES % (AUTO) 5.8 % (3.0-13.0); NEUTROPHILS # (AUTO) 2.6 K/uL (1.8-7.7); NEUTROPHILS % (AUTO) 54.8 % (40.0-77.0); PLATELET COUNT (AUTO) 170 K/uL (130-400); RED CELL DISTRIBUTION WIDTH 13.2 % (11.0-15.5); WHITE BLOOD COUNT (AUTO) 4.7 K/uL (4.8-10.8)
[2024-10-30 05:11] LABS: ALBUMIN 2.8 g/dL (3.5-5.0); BILIRUBIN,TOTAL 0.5 mg/dL (0.2-1.0); CREATININE 0.7 mg/dL (0.5-1.0); MAGNESIUM 1.8 mg/dL (1.80-2.40); TOTAL PROTEIN, SERUM 5.7 g/dL (6.0-8.3)
[2024-10-30 05:25] LABS: POTASSIUM 2.7 mmol/L (3.5-5.1)
[2024-10-30] MEDS: PoTASSium chloRIDE 20MEQ ER 20 MEQ ERTAB PO PRN (06:40)
[2024-10-30] MEDS: PoTASSium chloRIDE 20MEQ/100ML 100 ML IV PRN (07:59)
[2024-10-30 08:00] VITALS: BP 131/78; PULSE 59; RESP 20; TEMP 97.8
[2024-10-30 09:00] VITALS: O2SAT 99
--- NOTE | 2024-10-30 10:30 | NUR ---
PER DR. ESTEVEZ, COVER POTASSIUM LEVEL OF 2.7, RECHECK AFTER IV POTASSIUM IS DONE AND CALL WITH RESULT TO DETERMINE OK TO DC.
[2024-10-30 12:00] VITALS: BP 136/77; PULSE 73; RESP 20; TEMP 97.6
--- NOTE | 2024-10-30 13:50 | NUR ---
POTASSIUM RECHECK RESULTS 4.8, DR. ESTEVEZ AWARE AND PROCEED WITH DC.
--- NOTE | 2024-10-30 15:00 | NUR ---
DC NOTE DC INSTRUCTIONS AND FOLLOW UP APPOINTMENTS GIVEN TO PT AND DAUGHTER IN LAW, VERBALIZED UNDERSTANDING. PIVS REMOVED, CATHETERS INTACT, DENIES ANY PAIN OR DISCOMFORT. PT IS WALKED DOWNSTAIRS, DENIES WHEELCHAIR WITH FEED MILL OPERATOR INTO VIA PRIVATE CAR. NO FURTHER COMMENTS OR CONCERNS AT THIS TIME.
== END 2024-10-30 15:00 | disposition home or self-care (01) | DRG 638 ==
LOC: EDH 08:08 → EDHIP 08:48 → 3CH 10-29 16:27
PROVIDERS: ADMIT Internal Medicine; ATTEND Internal Medicine
DX: E11.10 Type 2 diabetes mellitus with ketoacidosis without coma (principal); N17.9 Acute kidney failure, unspecified; E86.0 Dehydration; D72.829 Elevated white blood cell count, unspecified; Z79.4 Long term (current) use of insulin
CPT/HCPCS: 36415; 36600; 76770; 80048; 80053; 80305; 81001; 82010; 82435; 82803; 82947; 82948; 83605; 83690; 83735; 84132; 84295; 84484; 85025; 85027; 87040; 87086; 93005; 96361; 96374; 96375; 99291; G0378; J0696; J1815; J2405; J3480; J3490; J7120